=== PATIENT | female | born 1990 | race Hispanic/Latino ===

== ENCOUNTER 2020-04-26 22:06 | Emergency (ER) | payer OTHER, SELFPAY ==
[2020-04-26 23:20] LABS: Absolute Lymphocytes (CBC) 3.3 K/uL (0.7-4.9); Basophils % 0.3 % (0-1.3); Hematocrit 38.2 % (36.0-45.0); Lymphocytes % 38.1 % (15.3-44.8); MPV 8.3 fL (7.6-11.3); RBC Red Blood Cell Count 4.48 M/uL (3.86-4.86)
[2020-04-26 23:55] LABS: BUN Blood Urea Nitrogen 10 mg/dL (7-18); Bicarbonate 28 mmol/L (21-32); Glucose Level 145 mg/dL (74-106); Magnesium 2.6 mg/dL (1.8-2.4); NT PRO-BNP 18 pg/mL (<125); Potassium 3.6 mmol/L (3.5-5.1); Sodium Level 140 mmol/L (136-145); Troponin (Emerg Dept Use Only) < 0.02 ng/mL (0.0-0.045)
--- NOTE | 2020-04-27 00:29 | ER ---
Nurse's Notes [facility] Name: Dee Mark Age: 30 yrs Sex: Female : 1990 Arrival Date: 04/26/2020 Time: 22:07 Bed 15 Private MD: Diagnosis: Palpitations Presentation: 04/26 22:18 Chief complaint: Patient states: about three hours ago, I was cleaning and felt like I sg was having palpitations and Im not sure if Im having an anxiety attack, pt states having a cough as well that began about three weeks ago, denies N/V/D/Fever. Coronavirus screen: Patient reports a cough. Patient reports shortness of breath or difficulty breathing. Patient denies measured and/or subjective temperature greater than 100.4F prior to today's visit. Patient denies travel on a cruise ship or to a country the [facility] currently lists as an affected area. Patient denies contact with known and/or suspected case of COVID-19. Ebola Screen: Patient negative for fever greater than or equal to 101.5 degrees Fahrenheit, and additional compatible Ebola Virus Disease symptoms Patient denies exposure to infectious person. Patient denies travel to an Ebola-affected area in the 21 days before illness onset. No symptoms or risks identified at this time. Initial Sepsis Screen: Does the patient meet any 2 criteria? No. Patient's initial sepsis screen is negative. Does the patient have a suspected source of infection? No. Patient's initial sepsis screen is negative. Risk Assessment: Do you want to hurt yourself or someone else? Patient reports no desire to harm self or others. Onset of symptoms was April 26, 2020. Care prior to arrival: None. Transition of care: patient was not received from another setting of care. 22:18 Method Of Arrival: Ambulatory sg 22:18 Acuity: NAKITA 3 sg Triage Assessment: 23:00 General: Appears in no apparent distress. Behavior is appropriate for age. Respiratory: ea Reports shortness of breath Onset: The symptoms/episode began/occurred today, the patient reports symptoms have resolved. 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 - Social history:: Smoking status: Patient denies any tobacco usage or history of. Screenin:02 Abuse screen: Denies threats or abuse. Nutritional screening: No deficits noted. ea Tuberculosis screening: No symptoms or risk factors identified. Fall Risk IV access (20 points). Assessment: 23:02 General: Appears in no apparent distress. Behavior is calm, cooperative, appropriate ea for age. Pain: Denies pain. Neuro: Level of Consciousness is awake, alert, obeys commands, Oriented to person, place, time. Cardiovascular: Patient's skin is warm and dry. Respiratory: Airway is patent Respiratory effort is even, unlabored, Respiratory pattern is regular, symmetrical. Derm: Skin is pink, warm \T\ dry. 04/27 00:21 Reassessment: Patient and/or family updated on plan of care and expected duration. Pain ea level reassessed. Patient is alert, oriented x 3, equal unlabored respirations, skin warm/dry/pink. 00:39 Reassessment: Patient and/or family updated on plan of care and expected duration. Pain ea level reassessed. Patient is alert, oriented x 3, equal unlabored respirations, skin warm/dry/pink. Discharge instruction given to patient, verbalized the understanding of instruction. Pt left ED ambulatory tolerating well. Vital Signs: 04/26 22:18 BP 120 / 68; Pulse 89; Resp 16; Temp 99.6; Pulse Ox 100% on R/A; Weight 92.99 kg; Pain sg 3/10; 23:00 BP 104 / 61; Pulse 76; Resp 18; Pulse Ox 98% ; ea 04/27 00:22 BP 104 / 56; Pulse 98; Resp 18; Pulse Ox 100% ; ea ED Course: 04/26 22:07 Patient arrived in ED. ds1 22:11 Haily Arauz FNP-C [facility]. kb 22:11 Phil Sarabia MD is Attending Physician. kb 22:18 Arm band placed on. sg 22:20 Triage completed. sg 22:23 Kaylah Hubbard, RN is Primary Nurse. ea 23:02 Patient has correct armband on for positive identification. Bed in low position. Call ea light in reach. 23:51 XRAY Chest (1 view) In Process Unspecified. EDMS 04/27 00:39 No provider procedures requiring assistance completed. IV discontinued, intact, ea bleeding controlled, No redness/swelling at site. Pressure dressing applied. Administered Medications: No medications were administered Outcome: 00:28 Discharge ordered by . pedro 00:39 Discharged to home ambulatory. ea 00:39 Condition: stable 00:39 Discharge instructions given to patient, Instructed on discharge instructions, follow up and referral plans. Demonstrated understanding of instructions, follow-up care. 00:40 Patient left the ED. ea Signatures: Dispatcher [employer] EDCT Haily Arauz, AUTOMOTIVE WINDOW TINTER-C AUTOMOTIVE WINDOW TINTER-CkJesu Santos, RN RN Carmita Mcintosh ds1 Kaylah Hubbard RN RN danny Corrections: (The following items were deleted from the chart) 04/26 22:23 22:18 Acuity: NAKITA 4 jeremy luna
--- NOTE | 2020-04-27 00:29 | EDPHYS ---
Physician Documentation [facility] Name: Dee Mark Age: 30 yrs Sex: Female : 1990 Arrival Date: 04/26/2020 Time: 22:07 Bed 15 Private MD: ED Physician Phil Sarabia HPI: 04/26 22:55 This 30 yrs old Female presents to ER via Ambulatory with complaints of kb Shortness Of Breath, Palpitations. 22:55 The patient presents with a history of heart racing. 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 Onset: The symptoms/episode began/occurred 3 hour(s) ago. Duration: The patient or guardian reports multiple episodes, that are intermittent, with no pattern. Modifying factors: The symptoms are aggravated by nothing. The symptoms are alleviated by nothing. Associated signs and symptoms: Pertinent positives: SOB, Pertinent negatives: anxiety, chest pain, cough, fever, lightheadedness, nausea, syncope, near-syncope, unusual stressors, vertigo, vomiting. Severity of symptoms: At their worst the symptoms were moderate in the emergency department the symptoms have improved markedly. The patient has not experienced similar symptoms in the past. The patient has not recently seen a physician. Pt reports she was doing chores and felt her heart racing with shortness of breath. States it went away, then came back a little while later. States she feels better now and isn't sure if it was a panic attack or not. . 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 - Social history:: Smoking status: Patient denies any tobacco usage or history of. ROS: 22:55 Constitutional: Negative for fever, chills, and weight loss, Neck: Negative for injury, kb pain, and swelling, Abdomen/GI: Negative for abdominal pain, nausea, vomiting, diarrhea, and constipation, Back: Negative for injury and pain, MS/Extremity: Negative for injury and deformity, Skin: Negative for injury, rash, and discoloration, Neuro: Negative for headache, weakness, numbness, tingling, and seizure. 22:55 Cardiovascular: Positive for palpitations, Negative for chest pain, edema, orthopnea, paroxysmal nocturnal dyspnea. 22:55 Respiratory: Positive for shortness of breath, Negative for cough, dyspnea on exertion, hemoptysis, orthopnea, pleurisy, sputum production, wheezing. Exam: 22:55 Constitutional: This is a well developed, well nourished patient who is awake, alert, kb and in no acute distress. Head/Face: Normocephalic, atraumatic. Neck: Trachea midline, no thyromegaly or masses palpated, and no cervical lymphadenopathy. Supple, full range of motion without nuchal rigidity, or vertebral point tenderness. No Meningismus. Chest/axilla: Normal chest wall appearance and motion. Nontender with no deformity. No lesions are appreciated. Cardiovascular: Regular rate and rhythm with a normal S1 and S2. No gallops, murmurs, or rubs. Normal PMI, no JVD. No pulse deficits. Respiratory: Lungs have equal breath sounds bilaterally, clear to auscultation and percussion. No rales, rhonchi or wheezes noted. No increased work of breathing, no retractions or nasal flaring. Abdomen/GI: Soft, non-tender, with normal bowel sounds. No distension or tympany. No guarding or rebound. No evidence of tenderness throughout. Skin: Warm, dry with normal turgor. Normal color with no rashes, no lesions, and no evidence of cellulitis. MS/ Extremity: Pulses equal, no cyanosis. Neurovascular intact. Full, normal range of motion. Neuro: Awake and alert, GCS 15, oriented to person, place, time, and situation. Cranial nerves II-XII grossly intact. Motor strength 5/5 in all extremities. Sensory grossly intact. Cerebellar exam normal. Normal gait. 23:10 ECG was reviewed by the Attending Physician. kb Vital Signs: 22:18 BP 120 / 68; Pulse 89; Resp 16; Temp 99.6; Pulse Ox 100% on R/A; Weight 92.99 kg; Pain sg 12/20; 23:00 BP 104 / 61; Pulse 76; Resp 18; Pulse Ox 98% ; ea 04/27 00:22 BP 104 / 56; Pulse 98; Resp 18; Pulse Ox 100% ; ea MDM: 07/15 22:11 Patient medically screened. kb 22:54 Data reviewed: vital signs, nurses notes. Data interpreted: Pulse oximetry: on room air kb is 100 %. Interpretation: normal. 04/27 00:28 Counseling: I had a detailed discussion with the patient and/or guardian regarding: the kb historical points, exam findings, and any diagnostic results supporting the discharge/admit diagnosis, lab results, radiology results, the need for outpatient follow up, a family practitioner, to return to the emergency department if symptoms worsen or persist or if there are any questions or concerns that arise at home. 04/26 22:17 Order name: Basic Metabolic Panel; Complete Time: 23:58 kb 04/26 22:17 Order name: CBC with Diff; Complete Time: 23:22 kb 04/26 22:17 Order name: Magnesium; Complete Time: 23:58 kb 04/26 22:17 Order name: NT PRO-BNP; Complete Time: 23:58 kb 04/26 22:17 Order name: Troponin (emerg Dept Use Only); Complete Time: 23:58 kb 04/26 22:17 Order name: XRAY Chest (1 view) kb 04/26 22:17 Order name: EKG; Complete Time: 22:18 kb 04/26 22:17 Order name: Cardiac monitoring; Complete Time: 22:47 kb 04/26 22:17 Order name: EKG - Nurse/Tech; Complete Time: 22:47 kb 04/26 22:17 Order name: IV Saline Lock; Complete Time: 23:01 kb 04/26 22:17 Order name: Labs collected and sent; Complete Time: 23:01 kb 04/26 22:17 Order name: O2 Per Protocol; Complete Time: 23:01 kb 04/26 22:17 Order name: O2 Sat Monitoring; Complete Time: 23:01 kb EC/15 23:10 Rate is 73 beats/min. Rhythm is regular. QRS [place] is Normal. GA interval is normal at kb 168 msec. QRS interval is normal at 78 msec. QT interval is normal at 368 msec. Administered Medications: No medications were administered Disposition: 04/27 08:47 Co-signature as Attending Physician, Phil Sarabia MD I agree with the assessment and charity plan of care. Disposition: 04/27/20 00:28 Discharged to Home. Impression: Palpitations. - Condition is Stable. - Discharge Instructions: Palpitations, [id number]. - Medication Reconciliation Form, Thank You Letter, Antibiotic Education, Prescription Opioid Use form. - Follow up: Private Physician; When: 2 - 3 days; Reason: Recheck today's complaints, Continuance of care, Re-evaluation by your physician. Follow up: Emergency Department; When: As needed; Reason: Worsening of condition. Signatures: Dispatcher [employer] EDWV Haily Arauz, JENNIFER FRANCO-Jesu Metzger RN RN Phil Serrano MD MD cha Antunez, Elena, RN RN ea Corrections: (The following items were deleted from the chart) 00:40 00:28 04/27/2020 00:28 Discharged to Home. Impression: Palpitations. Condition is ea Stable. Forms are Medication Reconciliation Form, Thank You Letter, Antibiotic Education, Prescription Opioid Use. Follow up: Private Physician; When: 2 - 3 days; Reason: Recheck today's complaints, Continuance of care, Re-evaluation by your physician. Follow up: Emergency Department; When: As needed; Reason: Worsening of condition. kb
[2020-04-27 00:49] VITALS: TEMP 99.6
[2020-04-27 00:50] VITALS: BP 104/56; O2SAT 100
--- NOTE | 2020-04-27 07:23 | EKG ---
Test Date: 2020-04-26 Test Time: 22:43:41 Multineedle Shirrer: ELISE MEASUREMENT RESULTS: Intervals: Rate: 73 CT: 168 QRSD: 78 QT: 368 QTc: 405 [place]: P: 25 CT: 168 QRS: 37 T: 6 INTERPRETIVE STATEMENTS: Normal sinus rhythm Normal ECG No previous ECG available for comparison Electronically Signed On 04-27-20 07:22:52 CDT by Raphael Clemens
--- NOTE | 2020-04-27 08:21 | RAD REPORT ---
EXAM DESCRIPTION: RAD - Chest Single View - 04/26/2020 11:51 pm CLINICAL HISTORY: PALPITATIONS COMPARISON: None TECHNIQUE: AP portable chest image was obtained 04/26/2020 11:51 pm . FINDINGS: Lungs are clear. Heart and vasculature are normal. No measurable pleural effusion and no p neumothorax. No acute bony abnormality seen. No acute aortic findings suspected. IMPRESSION: No acute cardiopulmonary process.
== END 2020-04-27 00:40 | disposition home or self-care (01) ==
LOC: ER 22:06
DX: R00.2 Palpitations (principal)
CPT/HCPCS: 36415; 71045; 80048; 83735; 83880; 84484; 85025; 93005; 99283